=== PATIENT | female | born 1960 | race Caucasian/White ===

== ENCOUNTER 2024-10-12 06:01 | Day surgery (SDC) | payer BC ==
[~2024-10-12 06:01] MED LIST: Propofol 200 MG/20 ML SDV ONE
[2024-10-12] MEDS ORDERED: Lactated Ringers 1,000 ML IV ONE (06:02)
[2024-10-12] MEDS ORDERED: Propofol 200 MG/20 ML SDV IV ONE (06:02)
[2024-10-12] MEDS: Lactated Ringers 1,000 ML IV SCH (06:35)
[2024-10-12 08:33] VITALS: BP 151/90; PULSE 66
== END 2024-10-12 08:25 | disposition home or self-care (01) ==
LOC: DL.ENDO 06:01
PROVIDERS: ATTEND Internal Medicine Gastroenterology
DX: Z12.11 Encounter for screening for malignant neoplasm of colon (principal); K64.4 Residual hemorrhoidal skin tags
CPT/HCPCS: 45378; J7120; 00812; J2003; J2704; S5010